=== PATIENT | male | born 1970 | race Two or more races ===

== ENCOUNTER 2023-05-26 18:36 | Emergency (ER) | payer OTHER ==
[~2023-05-26] VITALS: Ht 198.1 cm; Wt 210.5 kg
[2023-05-26] MEDS ORDERED: ZESTRIL10 M1 PO (18:58)
[2023-05-26] MEDS ORDERED: HYDROCHLOROTHIA25 MG PO (18:58)
[2023-05-26] MEDS ORDERED: VERAPAMIL ER240 MG PO (18:58)
[2023-05-26] MEDS ORDERED: NEURONTIN800 MG PO (18:59)
[2023-05-26] MEDS ORDERED: OMEPRAZOLE40 MG PO (18:59)
== END 2023-05-26 21:56 | disposition home or self-care (01) ==
LOC: ER 18:36
DX: M77.10 Lateral epicondylitis, unspecified elbow (principal)